=== PATIENT | female | born 1965 | race Two or more races ===

== ENCOUNTER 2020-07-27 12:09 | Inpatient (IN) | payer BC, OTHER ==
[~2020-07-27] VITALS: Ht 160 cm; Wt 78.3 kg
[2020-07-27] MEDS ORDERED: ZINC SULFATE 220mg CAP or TAB PO ONE (12:30)
[2020-07-27] MEDS ORDERED: methylPREDNISolone SOD SUCC 125 MG/2 ML VL IV ONE (12:30)
[2020-07-27] MEDS ORDERED: AZITHROMYCIN 500MG/ 250ML 250 ML IV ONE (12:30)
[2020-07-27] MEDS ORDERED: ASCORBIC ACID 500 MG TAB PO ONE (12:30)
[2020-07-27 13:56] LABS: Basophils # (auto) 0.1 10 ^3/uL (0-0.2); Basophils % (auto) 0.8 % (0.0-2.0); Eosinophils # (auto) 0.1 10 ^3/uL (0-0.8); Eosinophils % (auto) 0.7 % (0.0-7.0); Hematocrit 41.9 % (36.0-46.0); Hemoglobin 13.4 g/dL (12.2-16.2); Lymphocytes # (auto) 1.7 10 ^3/uL (0.4-5.4); Lymphocytes % (auto) 13.4 % (10.0-50.0); Mean Corpuscular Hemoglobin 29.4 pg (28.0-32.0); Mean Corpuscular Hgb Conc. 32.1 g/dL (32.0-36.0); Mean Corpuscular Volume 91.7 fL (80.0-100.0); Monocytes # (auto) 1.3 10 ^3/uL (0-1.3); Monocytes % (auto) 10.2 % (0.0-12.0); Neutrophils # (auto) 9.7 10 ^3/uL (1.6-8.6); Neutrophils % (auto) 74.9 % (37.0-80.0); Nucleated Red Blood Cells % 0.1 %; Platelet Count (auto) 443 10^3/uL (140-450); Red Blood Cells 4.57 10^6/uL (4.0-5.20); Red Cell Distribution Width 13.9 % (11.8-14.3); White Blood Cell 12.9 10^3/uL (4.4-10.8)
[2020-07-27 15:13] LABS: Lactic Acid w/Reflex 2.4 mmol/L (0.4-2.0)
[2020-07-27 16:24] LABS: Urine Bacteria MANY /hpf (None Seen); Urine Blood Negative /uL (Negative); Urine Mucus FEW (None Seen); Urine WBC 6 /hpf (0 - 5)
[2020-07-27] MEDS ORDERED: MORPHINE SULF INJ 2 MG/ML SYRINGE 1ML IV PRN ×2 (17:45→18:15)
[2020-07-27] MEDS ORDERED: NITROGLYCERIN 0.4 MG SL TAB SL PRN (17:45)
[2020-07-27] MEDS ORDERED: SODIUM CHLORIDE 0.9% 1,000 ML IV SCH (17:45)
[2020-07-27] MEDS ORDERED: traMADol HCL 50 MG TAB PO PRN (18:15)
[2020-07-27] MEDS ORDERED: LACTULOSE 20Gm/30ML SOLN PO PRN (18:15)
[2020-07-27] MEDS ORDERED: TEMAZEPAM 15 MG CAP PO PRN (18:15)
[2020-07-27] MEDS ORDERED: PROMETHAZINE HCL 25 MG/ML 1ML IV PRN (18:15)
[2020-07-27] MEDS ORDERED: ACETAMINOPHEN 500 MG TAB PO PRN (18:15)
[2020-07-27] MEDS ORDERED: cefTRIAXone 1GM/50ML D5W 50 ML IV ONE (18:15)
[2020-07-27 18:36] LABS: Chloride 109 mmol/L (98-107); Sodium 142 mmol/L (136-145)
[2020-07-27 18:49] LABS: Alanine Aminotransferase 48 U/L (13-56); Albumin 3.2 g/dL (3.4-5.0); Alkaline Phosphatase 85 U/L (45-117); Anion Gap 10 (5-15); Aspartate Aminotransferase 21 U/L (15-37); BUN/Creatinine Ratio 15.6; Blood Urea Nitrogen 12 mg/dL (7-18); CRP High Sensitivity 2.37 mg/dL (< 0.3); Calcium 8.5 mg/dL (8.5-10.1); Carbon Dioxide 23 mmol/L (21-32); GFR African American 99 mL/min; GFR Non-African American 82 mL/min; Glucose 68 mg/dL (74-106); Lactate Dehydrogenase 339 U/L (84-246); Total Protein 8.5 g/dL (6.4-8.2)
[2020-07-27 20:25] VITALS: BP 114/70
[2020-07-27] MEDS ORDERED: HCTZ25T PO (20:46)
[2020-07-27] MEDS: FAMOTIDINE 20 MG TAB PO SCH (21:34)
[2020-07-27] MEDS: ALBUTEROL SULF HFA 90MCG INH 200DOSE IN SCH (22:00)
[2020-07-28 03:05] VITALS: BP 114/70
[2020-07-28] MEDS: ALBUTEROL SULF HFA 90MCG INH 200DOSE IN SCH ×4 (07:39→21:24)
[2020-07-28 08:00] VITALS: BP 125/73
[2020-07-28 09:00] VITALS: BP 125/73
[2020-07-28] MEDS: cefTRIAXone 1GM/50ML D5W 50 ML IV SCH (09:01)
[2020-07-28] MEDS: DexAMETHasone SOD PHOS 10MG/1ML VIAL INJ IV SCH (09:49)
[2020-07-28] MEDS: FAMOTIDINE 20 MG TAB PO SCH ×2 (09:50→22:13)
[2020-07-28] MEDS: AZITHROMYCIN 500MG/ 250ML 250 ML IV SCH (09:50)
[2020-07-28] MEDS: ASCORBIC ACID 1,000 MG TAB PO SCH (09:50)
[2020-07-28] MEDS: ZINC SULFATE 220mg CAP or TAB PO SCH (09:50)
[2020-07-28] MEDS: CHOLECALCIFEROL (VITD3) 2,000 UNIT CAP PO SCH (09:51)
[2020-07-28] MEDS ORDERED: ENOXAPARIN SOD 40 MG/0.4 ML SYRINGE SC SCH ×2 (10:00→22:00)
[2020-07-28 10:44] LABS: Basophils # (auto) 0.2 10 ^3/uL (0-0.2); Basophils % (auto) 0.9 % (0.0-2.0); Eosinophils # (auto) 0 10 ^3/uL (0-0.8); Hematocrit 37.5 % (36.0-46.0); Hemoglobin 12.3 g/dL (12.2-16.2); Lymphocytes # (auto) 1.4 10 ^3/uL (0.4-5.4); Lymphocytes % (auto) 7.1 % (10.0-50.0); Mean Corpuscular Hemoglobin 30.2 pg (28.0-32.0); Mean Corpuscular Hgb Conc. 32.8 g/dL (32.0-36.0); Mean Corpuscular Volume 92.2 fL (80.0-100.0); Monocytes # (auto) 0.9 10 ^3/uL (0-1.3); Monocytes % (auto) 4.5 % (0.0-12.0); Neutrophils # (auto) 16.8 10 ^3/uL (1.6-8.6); Neutrophils % (auto) 87.5 % (37.0-80.0); Platelet Count (auto) 384 10^3/uL (140-450); Red Blood Cells 4.07 10^6/uL (4.0-5.20); White Blood Cell 19.2 10^3/uL (4.4-10.8)
[2020-07-28 11:13] LABS: Albumin 2.8 g/dL (3.4-5.0); Calcium 8.5 mg/dL (8.5-10.1); Magnesium 2.4 mg/dL (1.6-2.6); Potassium 3.5 mmol/L (3.5-5.1)
[2020-07-28 11:17] LABS: BUN/Creatinine Ratio 16.4; Bilirubin, Total 0.5 mg/dL (0.2-1.0); Total Protein 7.7 g/dL (6.4-8.2)
[2020-07-28 11:21] LABS: INR 1.11 (0.9-1.15)
[2020-07-28 11:22] LABS: CRP High Sensitivity 5.95 mg/dL (< 0.3)
[2020-07-28 13:00] VITALS: BP 136/78
[2020-07-28] MEDS ORDERED: IOHEXOL 350 MG/ML 100ML IJ ONE (14:02)
[2020-07-28] MEDS ORDERED: ENOXAPARIN SOD 100 MG/1 ML SYRINGE SC SCH (15:30)
[2020-07-28 17:00] VITALS: BP 134/78
[2020-07-28] MEDS: BUDESONIDE (INHALATION) 180 MCG IH IN SCH (21:24)
[2020-07-28 22:00] VITALS: BP 118/77
[2020-07-28] MEDS ORDERED: BUDESONIDE (INHALATION) 0.5 MG/2 ML NEB NEB SCH (22:00)
[2020-07-28] MEDS ORDERED: PULMICORT 180 MCG INH SCH (22:00)
[2020-07-28] MEDS: ENOXAPARIN SOD 80 MG/0.8ML SYRINGE SC SCH (22:13)
[2020-07-29 06:00] VITALS: BP_SYST 116; BP_SYST 124; BP_DIAS 79; BP_DIAS 85
[2020-07-29 08:00] VITALS: BP 128/75
[2020-07-29] MEDS: BUDESONIDE (INHALATION) 180 MCG IH IN SCH ×2 (08:27→21:46)
[2020-07-29] MEDS: ALBUTEROL SULF HFA 90MCG INH 200DOSE IN SCH ×3 (08:27→21:46)
[2020-07-29] MEDS: DexAMETHasone SOD PHOS 10MG/1ML VIAL INJ IV SCH (08:39)
[2020-07-29] MEDS: AZITHROMYCIN 500MG/ 250ML 250 ML IV SCH (08:39)
[2020-07-29] MEDS: cefTRIAXone 1GM/50ML D5W 50 ML IV SCH (08:39)
[2020-07-29] MEDS: CHOLECALCIFEROL (VITD3) 2,000 UNIT CAP PO SCH (08:40)
[2020-07-29] MEDS: FAMOTIDINE 20 MG TAB PO SCH ×2 (08:40→22:00)
[2020-07-29] MEDS: ZINC SULFATE 220mg CAP or TAB PO SCH (08:40)
[2020-07-29] MEDS: ENOXAPARIN SOD 80 MG/0.8ML SYRINGE SC SCH ×2 (08:40→22:00)
[2020-07-29] MEDS: ASCORBIC ACID 1,000 MG TAB PO SCH (08:40)
[2020-07-29 11:45] VITALS: BP 121/77
[2020-07-29 17:00] VITALS: BP 123/77
[2020-07-29 22:00] VITALS: BP 126/81
[2020-07-30 05:00] VITALS: BP 119/78
[2020-07-30] MEDS: ALBUTEROL SULF HFA 90MCG INH 200DOSE IN SCH (06:19)
[2020-07-30] MEDS: BUDESONIDE (INHALATION) 180 MCG IH IN SCH (06:19)
[2020-07-30 08:00] VITALS: BP 120/88
[2020-07-30] MEDS ORDERED: APIXABAN 5 MG TAB PO SCH (10:00)
[2020-07-30] MEDS: cefTRIAXone 1GM/50ML D5W 50 ML IV SCH (10:01)
[2020-07-30] MEDS: AZITHROMYCIN 500MG/ 250ML 250 ML IV SCH (10:02)
[2020-07-30] MEDS: DexAMETHasone SOD PHOS 10MG/1ML VIAL INJ IV SCH (10:02)
[2020-07-30] MEDS: FAMOTIDINE 20 MG TAB PO SCH (10:02)
[2020-07-30] MEDS: ZINC SULFATE 220mg CAP or TAB PO SCH (10:02)
[2020-07-30] MEDS: CHOLECALCIFEROL (VITD3) 2,000 UNIT CAP PO SCH (10:03)
[2020-07-30] MEDS: ASCORBIC ACID 1,000 MG TAB PO SCH (10:03)
[2020-07-30 12:00] VITALS: BP 125/84
[2020-08-06] MEDS ORDERED: APIXABAN 5 MG TAB PO SCH (10:00)
== END 2020-07-30 14:00 | disposition home or self-care (01) | DRG 177 ==
LOC: ER 12:09 → TELE 12:10 → TELE-EAST 20:30
PROVIDERS: ADMIT Internal Medicine; ATTEND Internal Medicine
DX: U07.1 COVID-19 (principal); J12.89 Other viral pneumonia; I26.99 Other pulmonary embolism without acute cor pulmonale; N39.0 Urinary tract infection, site not specified; D25.9 Leiomyoma of uterus, unspecified; K44.9 Diaphragmatic hernia without obstruction or gangrene; K80.20 Calculus of gallbladder without cholecystitis without obstruction; Z82.49 Family history of ischemic heart disease and other diseases of the circulatory system; Z83.3 Family history of diabetes mellitus; Z88.0 Allergy status to penicillin; Z88.8 Allergy status to other drugs, medicaments and biological substances
CPT/HCPCS: 36415; 71045; 71275; 74176; 80053; 81001; 82728; 83036; 83605; 83615; 83735; 83880; 84443; 84484; 85025; 85379; 85610; 86141; 87040; 87086; 87426; 93970; 94640; 96365; 96366; 96375; G0378; J0696; J1100